=== PATIENT | female | born 1970 | race Caucasian/White ===

== ENCOUNTER 2023-12-08 13:00 | Inpatient (IN) | payer OTHER, SELFPAY ==
[2023-12-08] VITALS (9 sets, daily range): BP systolic 117–152; BP diastolic 57–117; BMI 25.1; BMI 29.9
--- NOTE | 2023-12-08 10:29 | ED.GENMED ---
History of Present Illness
General
Chief Complaint: Breathing Problem
Source: patient
Exam Limitations: none
Time Seen by Provider: 12/08/23 10:13
Nursing documentation reviewed up to this point in time: agreed with
History of Present Illness
History of Present Illness:
53 y/o F h/o breast CA s/p lumpectomy 04/06 and s/p completion of radiation therapy in jun 2023
6 weeks cough/uri sxs started
no fever
sinus pressure, nasal discharge, congestion
saw the PCP 11/02 and was given abx, amox 875 bid x 7 days, medrol dose pack, inhaler, and flonase
pt completed that therapy and felt better briefly
but then about 3 weeks ago started to feel sob
she used the albuterol inhaler a few times a day that intiially helped
on 12/06 she was really SOB so she had telehealth and was sent for outpatient labs and cxr
her cxr read was R sided patchy opacities but read as possible pneumoniitis vs. pna
pt was concerned about the radiation pneumonitis and spoke with her radiation oncologist who doubted that she had any pneumonitis
so they sent her for w/u with CT scan, which was requested by her radiation oncologist
Past History
Past History
ED Past Medical History: Cancer (breast)
ED Past Surgical History: Other (lumpectomy)
Social History
Tobacco: Non-smoker
Alcohol: None
Drug: None
Personal:
Review of Systems
Review of Systems
Allergies reviewed?: Yes
All Other Systems: Not applicable
Phy Exam
Physical Exam
Physical Exam:
GENERAL: Alert , in no apparent distress
EYE: pupils equal and reactive
NECK: Supple
ENT: o/p clr, mmm.
CARDIAC: Regular rate and rhythm .
LUNGS: rales base r lung; no wheezing, occ cough; no resp distrses;
ABDOMEN: Soft, without focal tenderness, no r/g, no cvat, normal bowel sounds
NEUROLOGICAL: Alert and oriented, no focal neuro deficits
SKIN: Warm and dry, skin intact.
MUSCULOSKELETAL: No edema, well perfused. neg linden's sign
PSYCH: Normal and appropriate interaction.
Scores
Heart Failure Risk
Heart Failure Risk Score: Not Applicable
Course
Orders/Labs/Results
Orders:
Orders
12/08/23 10:25
Complete Blood Count/With Diff Urgent
Comprehensive Metabolic Panel Urgent
Pro-BNP [NT-proBNP] Urgent
Troponin I Urgent
12/08/23 10:26
CT Chest Pe Study Urgent
Comment:
Reason For Exam: 6 weeks cough, sob, h/o breast ca
PTT Urgent
Prothrombin Time Urgent
12/08/23 10:27
Electrocardiogram (*1) Urgent
Reason for Study: Chest Pain
EKG- Treatment ONCE
12/08/23 11:42
Legionella Urinary Antigen Urgent
JAKE Source: Urine
Specimen Description:
Azithromycin 500 mg/250 ml [Zithromax Infusion] 500 mg in 250 ml IV NOW
CefTRIAXone [Rocephin] 1,000 mg IV NOW STA
12/08/23 11:52
Blood Culture Q30M
JAKE Source: Blood/Venous
Specimen Description:
Blood Culture Q30M
JAKE Source: Blood/Venous
Specimen Description:
Abnormal Lab Results
12/08/23
10:25
WBC 11.4 H 10^3/uL
(4.8-10.8)
Hct 36.7 L %
(37.0-47.0)
MCV 80.5 L fL
(81.0-99.0)
Plt Count 447 H 10^3/uL
(130-400)
Absolute Neuts (auto) 9.5 H 10^3/uL
(1.4-6.5)
Absolute Lymphs (auto) 1.1 L 10^3/uL
(1.2-3.4)
Absolute Monos (auto) 0.8 H 10^3/uL
(0.1-0.6)
Neutrophils % 83.1 H %
(42.2-75.2)
Lymphocytes % 9.2 L %
(20.5-51.1)
Glucose 127 H mg/dl
(70-99)
12/08/23 10:25
12/08/23 10:25
Vital Signs
Initial and Last Documented VS:
Initial Vital Signs
Temp Pulse Resp BP Pulse Ox
98.4 F 95 20 152/88 97
12/08/23 09:05 12/08/23 09:05 12/08/23 09:05 12/08/23 09:05 12/08/23 09:05
Last Documented Vital Signs
Temp Pulse Resp BP Pulse Ox
98.4 F 88 16 150/117 98
12/08/23 09:05 12/08/23 10:24 12/08/23 10:24 12/08/23 10:23 12/08/23 10:24
MDM/Problems Addressed
Differential Diagnosis Includes:
pna, PE, asthmatic bronchitis
MDM/Problems Addressed:
53 y/o F with h/o breast ca on tamoxifen
here with sob
started 6 weeks ago with uri sxs
had abx and steroids and inhaler
briefly felt better but worse the past 3 weeks
now very fatigued, sob
normal pulse ox
had outpatient cxr showing pna R sided and sent in for CT
pt has night sweats last night
on exam afebrile, no signs sepsis
cracles r lung
no resp distress
ekg with t wave inv v2 otherwise nonischemic
trop, bnp normal
wbc with slight elevation and left shift
ct shows no PE
but extensive R sided multiobar pna
will admit for iv abx
*Critical Care Note
Total Time (30-74mins, 75-104mins- exclusive of procedures): Not Applicable
ED Attending Note
-
Portions of this chart may have been created with voice recognition software.� Occasional wrong word or��sound alike� substitutions may have occurred due to the inherent limitations of voice recognition software.
Discharge Plan
Departure
Patient Disposition: Admit
Date of Disposition: 12/08/23
Time of Disposition: 11:42
Admit to: Med/Surg
Presentation/result/management discussed w/ accepting MD/DO: Hospitalist
Condition: Fair
Covid-19: Not Applicable
Discharge Problem:
Pneumonia
Prescriptions:
No Action
prednisone 50 mg Tablet
50 mg PO DAILY
Rx Instructions:
for 5 days
montelukast 10 mg Tablet
10 mg PO HS
tamoxifen 20 mg Tablet
20 mg PO DAILY
fluticasone propion-salmeterol [Advair Diskus] 250-50 mcg/dose Blister With Device
1 inh INHALATION R BID
Theragen Tablet
1 tab PO DAILY
fluticasone propionate [Flonase] 50 mcg/actuation [employer],Suspension
1 spray INTRANASAL DAILY
loratadine [Claritin] 10 mg Tablet
10 mg PO DAILYPRN PRN (Reason: alleriges)
Referrals:
Adalberto Moss MD [Family Provider] -
Interventions
Interventions:
*Risk Screen - Suicide Last Done: 12/08/23 09:05
*General Assessment Last Done: 12/08/23 09:05
*Neglect/Abuse Screening Last Done: 12/08/23 09:05
ED- Fall Risk Assessment Last Done: 12/08/23 10:15
*ED COVID-19 Vaccine History Last Done: 12/08/23 10:15
ED- Cardiac Assessment Last Done: 12/08/23 10:15
ED- Pulmonary Assessment Last Done: 12/08/23 10:15
Discharge Date and Time
Print Language: DUTCH
[2023-12-08 10:31] LABS: % Basophils 0.4 % (0-2); % Immature Granulocytes 0.4 % (0-0.5); % Lymphocytes 9.2 % (20.5-51.1); % Monocytes 6.9 % (1.7-9.3); % Neutrophils 83.1 % (42.2-75.2); Absolute Lymphocytes 1.1 10^3/uL (1.2-3.4); Absolute Monocytes 0.8 10^3/uL (0.1-0.6); Absolute Neutrophils 9.5 10^3/uL (1.4-6.5); Hematocrit 36.7 % (37.0-47.0); Hemoglobin 12.4 g/dL (12.0-16.0); Mean Corp Hgb Conc. 33.8 g/dL (33.0-37.0); Mean Corpuscular Hgb 27.2 pg (27.0-31.0); Mean Corpuscular Volume 80.5 fL (81.0-99.0); Mean Platelet Volume 9.4 fL (7.4-10.4); Nucleated Red Blood Cells % 0 %; Platelet Count 447 10^3/uL (130-400); Red Blood Cell Count 4.56 10^6/uL (4.20-5.40); Red Cell Dist. Width 12.8 % (11.5-14.5); White Blood Cell Count 11.4 10^3/uL (4.8-10.8)
[2023-12-08 10:42] LABS: ALT (SGPT) 21 U/L (0-35); AST (SGOT) 24 U/L (14-36); Albumin 4.1 g/dl (3.5-5.0); Alkaline Phosphatase 75 U/L (38-126); Blood Urea Nitrogen 13 mg/dl (7-17); Calcium 9.9 mg/dl (8.4-10.2); Carbon Dioxide 28 mmol/L (22-30); Chloride 102 mmol/L (98-107); Estimated Creatinine Clearance 104 ml/min; Glucose 127 mg/dl (70-99); Potassium 4.4 mmol/L (3.5-5.1); Sodium 139 mmol/L (135-145); Total Bilirubin 0.5 mg/dl (0.2-1.3); Total Protein 7.8 g/dl (6.3-8.2); eGFR > 60.00
[2023-12-08 10:54] LABS: NT-proBNP 110 pg/ml; Troponin I < 0.012 ng/ml
[2023-12-08] MEDS: ZITHROMAX INFUSION 250 IV (12:56)
[2023-12-08] MEDS: ROCEPHIN 1000 MG IV (12:56)
--- NOTE | 2023-12-08 12:58 | HPS.HSE ---
Addendum entered and electronically signed by Brandon Ghotra MD 12/08/23 13:06:
I saw and examined the patient.
The COMBINE OPERATOR's note was reviewed and I agree with the note.
Comment:
53-year-old female past medical history of breast cancer right side status postlumpectomy status post chemo and radiation. Patient had radiation on the right breast starting June 08 till July 09, 2023 on a daily basis. Subsequently patient
with allergy symptoms and october and received treatment with Singulair and also completed a course of Augmentin for 7 days. Patient felt mildly better afterwards. Now with shortness of breath with exertion and cough. Dry cough no productive sputum.
No fevers. Underwent chest x-ray as outpatient with concern for infiltration/pneumonia.
General: Comfortable and Conversant
HEENT: Anicteric and Moist mucous membranes
Respiratory: Rales (Faint fine rales on the right) and Non Labored Respirations (Deep breathing triggers slight cough)
Cardiac: S1/S2 and Regular Rhythm; No Tachycardia
GI: Soft and Non Tender
Musculoskeletal: No Clubbing, No Cyanosis and No Edema
Skin: Warm and Dry
Neuro: Awake, Alert, Oriented and Nonfocal/grossly intact
Psych: Calm
Impression
Shortness of breath likely multifactorial with pneumonia/pneumonitis versus radiation induced lung injury
Right breast cancer status post lumpectomy status post chemo and radiation x 1 month
Plan
Start patient IV ceftriaxone azithromycin
Sputum sample however with dry cough
Bronchodilators
IV steroids
Pulmonary evaluation
Legionella and strep pneumo antigen pending
DVT prophylaxis
Discussed with spouse at bedside in details
Original Note:
Family Physician
-
Family Physician: Adalberto Moss
Chief Complaint
-
Cough and Shortness of Breath
History of Present Illness
Patient is a 53-year-old female past medical history of breast cancer s/p lumpectomy and radiation who presents with cough and shortness of breath. Patient reports he saw her primary care provider at the end of October due to nasal congestion, ear
fullness and cough. At that time she completed a course of Augmentin. She notes initial improvement in her symptoms with resolution of sinus pressure nasal congestion and ear fullness, and overall improvement in cough. However, last week she
developed worsening cough which was associated with shortness of breath. She saw her primary care provider on Thursday who started her on Singulair and Advair. She notes some improvement in symptoms with the Advair. Yesterday started on prednisone
and also had a chest x-ray. Following the results of this chest x-ray she was referred to the emergency department for evaluation due to her persistent cough and shortness of breath. Patient does note some slight improvement following dose of
steroids last evening. She reports symptoms are worse with activity. She reports fever during initial presentation in October, but denies any recent fevers though notes she did have sweats last evening.
Medical History
Past Medical History
Past Medical History: Reports Other
Additional Past Medical History:
Breast Cancer s/p Lumpectomy and XRT
Past Surgical History: Reports Other
Additional Past Surgical History:
Right Lumpectomy with Lymph Node Dissection
Social History
Tobacco: Non-smoker
Family History
Family History: Not pertinent
Allergies / Home Medications
Allergies reflects when Allergies were last updated in [facility].
Home Medications with original date entered in [facility]
Allergy/Medication List:
Allergies
Allergy/AdvReac Type Severity Reaction Status Date / Time
No Known Allergies Allergy Verified 12/08/23 09:11
Home Medications
fluticasone 250 mcg-salmeterol 50 mcg/dose blistr powdr for inhalation (Advair Diskus) 1 inh inhalation R BID 12/08/23
fluticasone propionate 50 mcg/actuation nasal spray,suspension 1 spray intranasal DAILY 12/08/23
loratadine 10 mg tablet (Claritin) 10 mg PO DAILYPRN PRN alleriges 12/08/23
montelukast 10 mg tablet 10 mg PO HS 12/08/23
prednisone 50 mg tablet 50 mg PO DAILY 12/08/23
tamoxifen 20 mg tablet 20 mg PO DAILY 12/08/23
therapeutic multivitamin 1 tab PO DAILY 12/08/23
Review of Systems
-
A 12 point ROS was completed and negative except as noted: Yes
Constitutional: Denies Fever
Respiratory: Reports See HPI
Cardiac: Denies Chest Pain or Palpitations
Abdomen/GI: Denies Abdominal Pain, Nausea or Vomiting
Physical Exam
Vital Signs
Vital Signs
Temp Pulse Resp BP Pulse Ox
98.4 F 88 16 150/117 98
12/08/23 09:05 12/08/23 10:24 12/08/23 10:24 12/08/23 10:23 12/08/23 10:24
Physical Exam
General: Comfortable and Conversant
HEENT: Anicteric and Moist mucous membranes
Respiratory: Rales (Faint fine rales on the right) and Non Labored Respirations (Deep breathing triggers slight cough)
Cardiac: S1/S2 and Regular Rhythm; No Tachycardia
GI: Soft and Non Tender
Musculoskeletal: No Clubbing, No Cyanosis and No Edema
Skin: Warm and Dry
Neuro: Awake, Alert, Oriented and Nonfocal/grossly intact
Psych: Calm
Laboratory Results
-
12/08/23 10:25
12/08/23 10:25
Laboratory Results
PT Cancelled 12/08/23 11:52
INR Cancelled 12/08/23 11:52
APTT Cancelled 12/08/23 11:52
Total Bilirubin 0.5 mg/dl (0.2-1.3) 12/08/23 10:25
AST 24 U/L (14-36) 12/08/23 10:25
ALT 21 U/L (0-35) 12/08/23 10:25
Alkaline Phosphatase 75 U/L (38-126) 12/08/23 10:25
Troponin I < 0.012 ng/ml 12/08/23 10:25
Data Reviewed
-
CT Scan: Report Reviewed by me
Lab Data: Labs Reviewed by me
Impression/Plan
-
Persistent Cough/Shortness of Breath, possible Multifocal Pneumonia vs Post-Infectious Cough vs Cough Variant Asthma vs Radiation Pneumonitis
-Consult Pulmonary
-Continue Zithromax and Rocephin
-Continue Decadron
-Change Advair to Pulmicort Neb
Breast Cancer s/p Right Lumpectomy and XRT
-Continue Tamoxifen
DVT proph: Lovenox
Code Status: Full Code
--- NOTE | 2023-12-08 13:06 | W.PN.UPDATE ---
Update Note
Progress Note Update
for billing purpose
[2023-12-08] MEDS: VENTOLIN NEBULES 2.5 MG INH ×2 (15:07→19:38)
--- NOTE | 2023-12-08 15:22 | CON.PUL ---
Consultation
Consultation Request
Date/Time Consultation Requested: 12/08/2023
Date/Time Consultation Performed: 12/08/2023
Requesting Provider: Dr. Ghotra
Performing Provider: Dr. Javan Cottrell
Reason for Consultation: Pneumonia
Medical History
-
History of Present Illness:
53-year-old woman with past medical history significant for breast cancer, status post right sided lumpectomy, chemotherapy and radiation. Completed radiation in June 2023.
Patient developed some allergy type symptoms she was treated with antibiotics. Started on singular as well.
Due to not improvement in symptoms, came to the emergency room with shortness of breath with exertion and coughing. Cough is nonproductive. Denies any hemoptysis.
Denies any fevers.
Chest x-ray in the outpatient setting showed possible pneumonia. She was admitted for further evaluation and we were consulted on 12/08/2023.
Currently sitting out of bed. Not on oxygen.
Denies rash, GI or symptoms.
Denies arthritis.
Denies hair loss.
She reports significant allergies and possibly mild asthma.
She has received antibiotics and prednisone prior admission.
Denies constitutional symptoms, weight loss etc.
Past Medical History
Past Medical History: Other (See assessment and plan section)
Social History
Tobacco: Non-smoker
Alcohol: Occasional
Drug: None
Living: With Family
Employment: Employed (And at [employer])
Family History
Family History: Reviewed & Not Pertinent
Allergies / Home Medications
Allergies
Allergy/AdvReac Type Severity Reaction Status Date / Time
No Known Allergies Allergy Verified 12/08/23 09:11
Home Medications
�Medication �Instructions �Recorded �Confirmed �Last Taken �Type
fluticasone 250 mcg-salmeterol 50 1 inh inhalation R BID 12/08/23 12/08/23 12/07/23 History
mcg/dose blistr powdr for
inhalation (Advair Diskus)
fluticasone propionate 50 1 spray intranasal DAILY 12/08/23 12/08/23 12/08/23 History
mcg/actuation nasal
spray,suspension
loratadine 10 mg tablet (Claritin) 10 mg PO DAILYPRN PRN alleriges 12/08/23 12/08/23 12/08/23 History
montelukast 10 mg tablet 10 mg PO HS 12/08/23 12/08/23 12/07/23 History
prednisone 50 mg tablet 50 mg PO DAILY 12/08/23 12/08/23 12/07/23 History
tamoxifen 20 mg tablet 20 mg PO DAILY 12/08/23 12/08/23 12/07/23 History
therapeutic multivitamin 1 tab PO DAILY 12/08/23 12/08/23 12/08/23 History
Review of Systems
-
History Source: Patient
All other systems: Negative unless noted
Vitals / Labs / Diagnostic Testing
Vital Signs
Temp Pulse Resp BP Pulse Ox
98.1 F 90 14 117/67 97
12/08/23 14:43 12/08/23 15:17 12/08/23 15:17 12/08/23 14:43 12/08/23 15:17
Lab Data
12/08/23 10:25
12/08/23 10:25
Laboratory Results
12/08/23
11:52
PT Cancelled
INR Cancelled
APTT Cancelled
Microbiology
12/08/23 11:52 Urine Legionella Urinary Antigen - Final
Negative for Legionella pneumophila Serogroup 1 antigen.
A negative result does not rule out the possiblity of
Legionella infection due to other serogroups or species of
Legionella. Clinical correlation is recommended.
12/08/23 11:55 Urine Streptococcus pneumoniae Antigen (M - Final
Negative for Streptococcus pneumoniae antigen.
A negative result does not exclude infection with
Streptococcus pneumoniae. Clinical correlation is
recommended.
Diagnostic Testing:
Physical Exam
-
HEENT: Normocephalic
Cardiovascular: S1/S2
Respiratory: Non-Labored Respirations
GI: Soft and Non Distended
Neurology: Awake, Oriented and No Motor Deficits
Skin: Warm
General: Comfortable and Other (Nontoxic, able to speak in full sentences.)
Assessment
-
53-year-old woman with past medical history noted. Came with cough and shortness of breath. Found to have a right upper lobe infiltrate. She received a course of Augmentin in the outpatient setting without improvement.
Shortness of breath: Possible pneumonia-
CT chest 12/08/2023: Reviewed, showed no evidence for pulmonary embolism. Extensive infiltrate throughout the right lung. No significant parapneumonic effusion. Hepatic lesion about 1.5 cm hemangioma suspected.
Conditions present prior admission:
Right lung cancer: Status postlumpectomy/radiation/chemotherapy completed June 2023.
On tamoxifen
Asthma
Allergies
Assessment and plan:
Based on clinical picture, most likely diagnosis would be community-acquired pneumonia-likely bacterial. Symptoms have been escalating since October with allergy/sinus symptoms. Progressive to the point that she developed shortness of breath.
Extensive right upper lobe infiltrate with air bronchograms.
Less likely radiation pneumonitis, last radiation was in late June. In rare occasions can occur up to 6 months but is very unlikely at this point. Very unlikely.
Normal renal function, normal LFTs, no eosinophilia. No extrapulmonary symptoms.
Reactive thrombocytosis noted
Not hypoxemic.
-
Continue with antibiotics
Blood and sputum culture if possible.
Antitussive
Mucolytic's
Will continue with the steroids with a short taper with close observation in the outpatient setting.
There is no prior images to review.
Patient will will need radiographic follow-up.
-
History of ? asthma/rhinosinusitis agree with transition to Pulmicort nebulizer
Currently not requiring oxygen
Has a harsh cough without bronchospasm
-
DVT prophylaxis-Lovenox.
Will continue to follow
-
Extensive discussion with patient.
Dr. Cottrell personally discussed with her primary care doctor Dr. Moss. 12/08/2023.
-
Patient would like to go home tomorrow if possible. I explained that that may be possible with close follow-up.
My information will be left in the chart.
I will reevaluate in the morning
[2023-12-08] MEDS: DECADRON 4 MG IV ×2 (16:03→23:00)
--- NOTE | 2023-12-08 17:10 | PTCARENOTE ---
Patient admitted from ER into room 411-02. Vital signs stable. Patient denies pain. Oriented to room, and use of call mccarthy and television and bed controls. Reviewed plan of care with patient. Patient verbalizes understanding of all teaching and
denies questions at this time. Patient sitting up in chair comfortable at this time.
[2023-12-08] MEDS: PULMICORT 0.5 MG INH (19:38)
[2023-12-08] MEDS: NOLVADEX 20 MG PO (21:00)
[2023-12-09 06:47] LABS: Hematocrit 39.5 % (37.0-47.0); Hemoglobin 12.8 g/dL (12.0-16.0); Mean Corp Hgb Conc. 32.4 g/dL (33.0-37.0); Mean Corpuscular Hgb 26.8 pg (27.0-31.0); Mean Corpuscular Volume 82.6 fL (81.0-99.0); Mean Platelet Volume 9.8 fL (7.4-10.4); Platelet Count 433 10^3/uL (130-400); Red Blood Cell Count 4.78 10^6/uL (4.20-5.40); Red Cell Dist. Width 12.8 % (11.5-14.5); White Blood Cell Count 12.5 10^3/uL (4.8-10.8)
[2023-12-09 07:21] LABS: Blood Urea Nitrogen 15 mg/dl (7-17); Calcium 9.9 mg/dl (8.4-10.2); Carbon Dioxide 25 mmol/L (22-30); Chloride 103 mmol/L (98-107); Estimated Creatinine Clearance 97 ml/min; Glucose 123 mg/dl (70-99); Potassium 4.8 mmol/L (3.5-5.1); Sodium 140 mmol/L (135-145); eGFR > 60.00
[2023-12-09] MEDS: VENTOLIN NEBULES INH ×2 (07:38→15:33)
[2023-12-09] MEDS: PULMICORT INH (07:38)
[2023-12-09 07:40] VITALS: BP 142/85
[2023-12-09] MEDS: DECADRON 4 MG IV (09:23)
[2023-12-09] MEDS: FLUSH (NSS) 1 FLUSH IV ×2 (09:23→12:59)
[2023-12-09] MEDS: ZITHROMAX 500 MG PO (09:24)
[2023-12-09] MEDS: VENTOLIN NEBULES 2.5 MG INH (11:29)
--- NOTE | 2023-12-09 11:40 | W.PN.HOSP.TC ---
Addendum entered and electronically signed by Gavin Schuler MD 12/09/23 18:02:
Patient seen and examined
Discussed with resident
Discussed with pulmonology
Impression/plan:
53 years old female presented with right-sided pneumonia.
Community-acquired pneumonia
Stable respiratory status with no requirements of supplemental oxygen.
No evidence of systemic infection
CT scan with right lower lobe infiltrate and very small parapneumonic effusion.
Blood cultures negative to date.
Legionella antigen negative.
Streptococcus pneumonia antigen negative.
Consulted antibiotics from ceftriaxone/Zithromax to levofloxacin 750 mg daily for 7 days.
Follow with pulmonology, repeat imaging for resolution of infiltrate
Stable for discharge home.
Original Note:
Today's Communication/Plan
-
* Transition to oral antibiotics to complete a 7-day course.
* Anticipated discharge soon.
Assessment / Plan
Assessment / Plan
Impression
* Community-acquired pneumonia
* Allergic rhinitis
* History of asthma
* History of breast cancer
Plan
Community-acquired pneumonia
- There were concerns for radiation pneumonitis vs. pneumonia.
- She completed radiation in June 2023, and would be less likely to develop pneumonitis following that at this point.
- CT chest consistent with extensive right multifocal pneumonia.
- Evaluated by pulmonology.
- On Zithromax and Rocephin; okay to transition to oral antibiotics.
- Continue Decadron
- Change Advair to Pulmicort Neb
- Vitals stable and has not required oxygen.
- Repeat imaging as an outpatient in 6-8 weeks.
Allergic rhinitis
- Recurrent and uses montelukast and fluticasone.
- Continue
History of asthma
- Not in exacerbation
- Can get update PFT as outpatient.
History of breast cancer
- In remission.
- Completed radiation following lumpectomy in June 2023.
- On tamoxifen.
DVT prophylaxis
- Enoxaparin SC.
Code status
- Full.
Anticipated Discharge: Today
Subjective/Interval History
-
Date of Service: December 09, 2023
Objective Data
-
Labs:
Laboratory Results
12/09/23
06:21
WBC 12.5 H
Hgb 12.8
Hct 39.5
Plt Count 433 H
Sodium 140
Potassium 4.8
Chloride 103
Carbon Dioxide 25
BUN 15
Creatinine 0.6
Glucose 123 H
Calcium 9.9
Vital Signs:
Vital Signs
Temp Pulse Resp BP Pulse Ox
97.6 F 77 18 142/85 97
12/09/23 07:40 12/09/23 11:34 12/09/23 11:34 12/09/23 07:40 12/09/23 11:34
I&O
12/08/23 12/09/23 12/10/23
06:59 06:59 06:59
Intake Total 720 / 720
Balance 720 / 720
Review of Systems
-
History Source: Patient
Constitutional: Reports Fatigue
EENT: Reports No Symptoms Reported
Respiratory: Reports No Symptoms
Cardiac: Reports No Symptoms
Abdomen/GI: Reports No Symptoms
Breast: Reports No Symptoms
Genitourinary: Reports No Symptoms
Musculoskeletal: Reports No Symptoms
Skin: Reports No Symptoms
Neuro: Reports No Symptoms
Endocrine: Reports No Symptoms
Hematologic / Lymphatic: Reports No Symptoms
Allergy / Immunology: Reports No Symptoms
Psych: Reports Anxious
Physical Exam
-
General: No Apparent Distress and Comfortable
HEENT: Normocephalic, Atraumatic, Moist Mucous Membranes, Anicteric and No Ptosis
Respiratory: Non Labored Respirations and Decreased Breath Sounds (right side throughout)
Cardiac: Regular Rhythm and S1/S2
GI: Soft, Nontender and Nondistended
Genito-urinary: No Costovertebral Tender
Skin: Warm, Dry and IV Access / Catheter Site
Neuro: Awake, Alert, Oriented and No Motor Deficits
Psych: Anxious
--- NOTE | 2023-12-09 12:13 | W.PN.PUL3 ---
Today's Communication / Plan
-
Continue antibiotics and complete 7 days. Okay to transition to p.o. antibiotics
Radiographic follow-up in the outpatient setting
Symptomatic management for cough
Hopefully discharge today
Sign off
Assessment
-
53-year-old woman with past medical history noted. Came with cough and shortness of breath. Found to have a right upper lobe infiltrate. She received a course of Augmentin in the outpatient setting without improvement.
Shortness of breath: Possible pneumonia-
CT chest 12/08/2023: Reviewed, showed no evidence for pulmonary embolism. Extensive infiltrate throughout the right lung. No significant parapneumonic effusion. Hepatic lesion about 1.5 cm hemangioma suspected.
Conditions present prior admission:
Right lung cancer: Status postlumpectomy/radiation/chemotherapy completed June 2023.
On tamoxifen
Asthma
Allergies
Assessment and plan:
Based on clinical picture, most likely diagnosis would be community-acquired pneumonia-likely bacterial. Symptoms have been escalating since October with allergy/sinus symptoms. Progressive to the point that she developed shortness of breath.
Extensive right upper lobe infiltrate with air bronchograms.
Less likely radiation pneumonitis, last radiation was in late June. In rare occasions can occur up to 6 months but is very unlikely at this point. Very unlikely.
Normal renal function, normal LFTs, no eosinophilia. No extrapulmonary symptoms.
Reactive thrombocytosis noted
Not hypoxemic.
-
Continue with antibiotics-complete total 7 days. Remains afebrile without leukocytosis. Can consider Levaquin upon discharge.
Streptococcus antigens and Legionella antigen negative
Blood culture So far negative
Unable to produce sputum.
Antitussives
Mucolytic's
Discontinue IV corticosteroids.
There is no prior images to review.
Patient will will need radiographic follow-up. Patient aware and information will be left in the chart for short-term follow-up.
-
History of ? asthma/rhinosinusitis agree with transition to Pulmicort nebulizer
Currently not requiring oxygen
Has a harsh cough without bronchospasm
Okay to continue with inhalers as prior admission.
Optional she can continue with her montelukast.
Continue antihistamines
-
DVT prophylaxis-Lovenox.
Will continue to follow
-
Extensive discussion with patient.
Dr. Cottrell personally discussed with her primary care doctor Dr. Moss. 12/08/2023.
-
Okay to discharge from my perspective with close follow-up. She will complete 7 days of antibiotics as above
Understands that she will need radiographic follow-up.
Subjective Data
-
Date of Service:
Date of Service: December 09, 2023
Chief Complaint: Pulmonary Follow Up (Pneumonia)
Subjective:
No overnight events
Continues to have intermittent coughing
No worsening shortness of breath
Afebrile
Denies hemoptysis
No new symptoms
Review of Systems
General: Fever (n)
Cardiopulmonary: Dyspnea (stable.)
GI: Abdominal Pain (n) and Nausea (n)
Neuro: Headache (n)
Objective Data
Data Reviewed
Vital Signs / I&O / Oxygen:
Vital Signs
Temp Pulse Resp BP Pulse Ox
97.6 F 77 18 142/85 97
12/09/23 07:40 12/09/23 11:34 12/09/23 11:34 12/09/23 07:40 12/09/23 11:34
Intake and Output
12/08/23 12/09/23 12/10/23
06:59 06:59 06:59
Intake Total 720 / 720
Balance 720 / 720
SaO2 97
Physical Exam
General: Respiratory Distress (n) and Comfortable
HEENT: Normocephalic
Cardiovascular: S1-S2
Respiratory: Clear and Non-Labored Respirations
GI: Soft and Non Distended
Neurology: Awake, Alert, Oriented and No Motor Deficits
Skin: Warm
Labs/Micro/Reports
Lab Data
12/09/23 06:21
12/09/23 06:21
Laboratory Results
12/08/23
11:52
PT Cancelled
INR Cancelled
APTT Cancelled
Microbiology
12/08/23 11:52 Blood/Venous Blood Culture - Preliminary
No Growth in 24 hours- Final report to follow
12/08/23 11:52 Blood/Venous Blood Culture - Preliminary
No Growth in 24 hours- Final report to follow
12/08/23 11:52 Urine Legionella Urinary Antigen - Final
Negative for Legionella pneumophila Serogroup 1 antigen.
A negative result does not rule out the possiblity of
Legionella infection due to other serogroups or species of
Legionella. Clinical correlation is recommended.
12/08/23 11:55 Urine Streptococcus pneumoniae Antigen (M - Final
Negative for Streptococcus pneumoniae antigen.
A negative result does not exclude infection with
Streptococcus pneumoniae. Clinical correlation is
recommended.
--- NOTE | 2023-12-09 12:49 | W.DCSUMMARY ---
Documented by User: Eldon Biswas MD, Resident 12/09/23 15:33
Discharge Summary
Discharge Data
Date of Admission: 12/08/23
Date of Discharge: 12/09/23
-
Pending Results: No
Hospital Course
Primary discharge diagnosis
*Community-acquired pneumonia
Secondary discharge diagnoses
* Allergic rhinitis
* Asthma without exacerbation
* History of breast cancer
Hospital course
Chelly Welsh, age 53, came to the emergency on 12-08-23 with progressive shortness of breath. Imaging was consistent with extensive multilobar right lung pneumonia. She was started on ceftriaxone and azithromycin. There were concerns for
radiation pneumonitis, but this was deemed unlikely based on presentation and imaging results; she was also evaluated by pulmonology. Her symptoms improved with antibiotics and supportive medications. Vitals remained stable throughout the visit, and
she did not require oxygen. On the day of her discharge, she was feeling good with considerable improvement in her symptoms. She will be discharged home with a 7-day course of antibiotics. Repeat blood work in 1 week with primary and pulmonology
follow-up. Repeat chest x-ray after 6-8 weeks.
Discharge Plan
-
Patient Disposition: Home (Routine Discharge)
Discharge Diagnosis/Procedures: Community-acquired pneumonia
Condition: Good
Diet: No restrictions
Activity: No restrictions
Driving Restrictions: As prior to admission
Bathing Restrictions: None
Blood Work: CBC and BMP in 1 week.
Others Tests: Repeat chest x-ray after 6-8 weeks.
Instructions: Community-acquired pneumonia in adults
Referrals:
Javan Mcelroy MD [Active] - in two weeks (May see [facility] DX Pneumonia. Then follow-up 6 [address] Cottrell.)
Adalberto Moss MD [Family Provider] -
Prescriptions:
New
levofloxacin 750 mg tablet
750 mg PO DAILY 7 Days Qty: 7 0RF
dextromethorphan-guaifenesin [Robitussin Cough-Chest Moris DM] 5-100 mg/5 mL liquid
10 ml PO Q4H PRN (Reason: Cough) Qty: 500 3RF
Continued
tamoxifen 20 mg Tablet
20 mg PO DAILY
fluticasone propion-salmeterol [Advair Diskus] 250-50 mcg/dose Blister With Device
1 inh INHALATION R BID
therapeutic multivitamin Tablet
1 tab PO DAILY
fluticasone propionate 50 mcg/actuation [place],Suspension
1 spray INTRANASAL DAILY
loratadine [Claritin] 10 mg Tablet
10 mg PO DAILYPRN PRN (Reason: alleriges)
Discontinued
prednisone 50 mg Tablet
50 mg PO DAILY
Rx Instructions:
for 5 days
montelukast 10 mg Tablet
10 mg PO HS
Discharge Orders:
Discharge Patient (As Directed); Ordered 12/09/23
Ordered By: Eldon Biswas
Discharge Date and Time
Discharge Date/Time: 12/09/23 16:57
Print Language: TONGAN

Documented by User: Gavin Schuler MD 12/09/23 17:57
Discharge Summary
Discharge Data
Date of Admission: 12/08/23
Date of Discharge: 12/09/23
Discharge Plan
-
Patient Disposition: Home (Routine Discharge)
Discharge Diagnosis/Procedures: Community-acquired pneumonia
Condition: Good
Diet: No restrictions
Activity: No restrictions
Driving Restrictions: As prior to admission
Bathing Restrictions: None
Blood Work: CBC and BMP in 1 week.
Others Tests: Repeat chest x-ray after 6-8 weeks.
Instructions: Community-acquired pneumonia in adults
Referrals:
Javan Mcelroy MD [Active] - in two weeks (May see [facility] DX Pneumonia. Then follow-up 6 [address] Cottrell.)
Adalberto Moss MD [Family Provider] -
Prescriptions:
New
levofloxacin 750 mg tablet
750 mg PO DAILY 7 Days Qty: 7 0RF
dextromethorphan-guaifenesin [Robitussin Cough-Chest [place] DM] 5-100 mg/5 mL liquid
10 ml PO Q4H PRN (Reason: Cough) Qty: 500 3RF
Continued
tamoxifen 20 mg Tablet
20 mg PO DAILY
fluticasone propion-salmeterol [Advair Diskus] 250-50 mcg/dose Blister With Device
1 inh INHALATION R BID
therapeutic multivitamin Tablet
1 tab PO DAILY
fluticasone propionate 50 mcg/actuation [place],Suspension
1 spray INTRANASAL DAILY
loratadine [Claritin] 10 mg Tablet
10 mg PO DAILYPRN PRN (Reason: alleriges)
Discontinued
prednisone 50 mg Tablet
50 mg PO DAILY
Rx Instructions:
for 5 days
montelukast 10 mg Tablet
10 mg PO HS
Discharge Orders:
Discharge Patient (As Directed); Ordered 12/09/23
Ordered By: Eldon Biswas
Discharge Date and Time
Discharge Date/Time: 12/09/23 16:57
Print Language: TONGAN
[2023-12-09] MEDS: STERILE WATER FOR INJECTION 10 ML IV (12:59)
[2023-12-09] MEDS: ROCEPHIN 1000 MG IV (12:59)
--- NOTE | 2023-12-09 14:47 | CM ---
Patient seen bedside with family, initial assessment completed. Patient resides with her family in a multiple story home, denies DME, VN, or SNF. Patient PCP Adalberto Moss, pharmacy [facility] in [place]. Patient reports they use pharmacy discount,
do not have prescription coverage through insurance. Family inquiring about discharge, updated that Hospitalist will be up to see patient. CM will continue to follow for all discharge planning needs.
Plan; home no needs anticipated.
[2023-12-09 15:15] VITALS: BP 130/74
--- NOTE | 2023-12-09 15:45 | PTCARENOTE ---
Pt AAO x3, BEAVER, OOB to BR/ambulatory in avelar, rock well. VSS. On room air- pulse ox 98%, no c/o SOB. Abd large, soft, rock PO well. Voiding in R without difficulty. Resting in bed at present, no c/o. Anticipating DC later this shift. Will
continue to monitor.
== END 2023-12-09 16:57 | disposition home or self-care (01) | DRG 195 ==
LOC: 4 EAST ACU 13:00
PROVIDERS: Physician Assistant Medical; Student in an Organized Health Care Education/Training Program; ADMITTING PHYSICIAN Hospitalist; ATTENDING PHYSICIAN Internal Medicine; CONSULT PHYSICIAN Internal Medicine Critical Care Medicine; EMERGENCY PHYSICIAN Emergency Medicine; FAMILY PHYSICIAN Family Medicine
DX: J18.9 Pneumonia, unspecified organism (principal); Z85.3 Personal history of malignant neoplasm of breast; J45.909 Unspecified asthma, uncomplicated
CPT/HCPCS: 71275; 80048; 80053; 83880; 84484; 85025; 85027; 87040; 87449; 87899; 93005; 94640; 99285; Q9967